=== PATIENT | female | born 1980 | race Caucasian/White ===

== ENCOUNTER 2017-04-08 11:54 | Emergency (ER) | payer SELFPAY ==
[~2017-04-08] VITALS: Ht 162.6 cm; Wt 63.2 kg
[~2017-04-08 11:54] MED LIST: ALBUTEROL0.09 MG/A1 IH; AMOXICILLIN875 MG PO; BCP TD; CEPHALEXIN500 M1 PO; LORTAB 5/500 501 TAB PO; MOTRIN 800800 MG/TAB PO; PERCOCET 325 MG1 TA2 PO; PERCOCET 5/321 UDTAB PO; PREDNISONE20 MG PO; PRENATAL1 TA1 PO; ZITHROMAX TRI-500 MG PO; ZOLOFT 25MG25 MG PO
[2017-04-08 11:56] VITALS: BP 121/79; TEMP 97.9
[2017-04-08 13:09] VITALS: PULSE 80
== END 2017-04-08 13:14 | disposition home or self-care (01) ==
LOC: COL.ER 11:54
DX: T78.40XA Allergy, unspecified, initial encounter (principal)
CPT/HCPCS: J1040; J7512